=== PATIENT | female | born 1975 | race Two or more races ===

== ENCOUNTER 2024-05-05 18:14 | Emergency (ER) | payer OTHER ==
[~2024-05-05] VITALS: Ht 160 cm; Wt 70.3 kg
[2024-05-05 18:41] VITALS: BP 113/74; PULSE 78; RESP 16; TEMP 98.2
[2024-05-05 20:45] VITALS: O2SAT 97
== END 2024-05-05 20:56 | disposition home or self-care (01) ==
LOC: ER 18:14
DX: S00.03XA Contusion of scalp, initial encounter (principal); W10.8XXA Fall (on) (from) other stairs and steps, initial encounter; Y93.89 Activity, other specified; Y92.89 Other specified places as the place of occurrence of the external cause; Y99.8 Other external cause status
CPT/HCPCS: 70450